=== PATIENT | male | born 1945 | race Caucasian/White ===

== ENCOUNTER → 2018-02-03 | Outpatient (CLI) | payer BC ==
[~2018-02-03] MED LIST: ASPI81TA28 PO; ISOS30TA3 PO; LOSA1TAB38 PO; MELATAB2 PO; MOME0.1O3; TNR50 PO; ZCR40 PO
== END | disposition home or self-care (01) ==
LOC: C.PATHSPEC 13:13
PROVIDERS: ATTEND Plastic Surgery
DX: D18.09 Hemangioma of other sites (principal)